=== PATIENT | female | born 1990 | race Caucasian/White ===

== ENCOUNTER 2017-12-25 04:34 | Inpatient (IN) | payer OTHER ==
[2017-12-25] MEDS ORDERED: BUTORPHANOL 1 MG/ML INJ IV PRN (05:50)
[2017-12-25] MEDS ORDERED: METHYLERGONOVINE 0.2MG/ML AMP IM PRN (05:50)
[2017-12-25] MEDS ORDERED: PROMETHAZINE 25 MG/ML VIAL IV PRN (05:50)
[2017-12-25] MEDS ORDERED: Ringers Lactate 1,000 ML IV PRN (05:50)
[2017-12-25] MEDS ORDERED: CARBOPROST TROME 250 MCG/ML IM PRN ×2 (05:50→18:41)
[2017-12-25] MEDS ORDERED: Ringers Lactate 1,000 ML IV SCH (06:00)
[2017-12-25] MEDS ORDERED: OXYTOCIN/LR 20 UNIT/1,000 ML BAG IV SCH ×2 (06:00→19:00)
[2017-12-25 06:46] LABS: RPR Titer ND
[2017-12-25 06:50] LABS: Absolute Lymphocytes (CBC) 2.1 K/uL (0.7-4.9); Absolute Monocytes 0.6 K/uL (0.1-1.3); Absolute Neutrophil 5.4 K/uL (1.8-8.0); Basophils % 0.7 % (0-1.3); Eosinophils % 1.8 % (0-4.4); Hematocrit 38.5 % (36.0-45.0); MCH 29.4 pg (27.0-35.0); MCV 84.3 fL (80-100); MPV 9.9 fL (7.6-11.3); Monocytes % 6.7 % (3.3-12.3); RBC Red Blood Cell Count 4.57 M/uL (3.86-4.86)
[2017-12-25 07:39] VITALS: BMI 34.7
[2017-12-25] MEDS ORDERED: FENTANYL CITR 100 MCG/2 ML IV ONE (10:49)
[2017-12-25] MEDS ORDERED: ROPIVACAINE HCL 100 ML IV PRN (10:49)
[2017-12-25] MEDS ORDERED: ROPIVACAINE HCL 0 ML ONE (11:53)
[2017-12-25] MEDS ORDERED: LIDOCAINE 2% INJ, 20 mL 20 ML ONE (17:10)
[2017-12-25] MEDS ORDERED: METHYLERGONOVINE 0.2MG/ML AMP IM ONE (17:10)
[2017-12-25] MEDS ORDERED: CARBOPROST TROME 250 MCG/ML IM ONE ×2 (18:38)
[2017-12-25] MEDS ORDERED: ONDANSETRON 4 MG (ODT) TAB PO PRN (18:41)
[2017-12-25] MEDS ORDERED: Oxycodone HCl/Acetaminophen 1 TAB TAB PO PRN (18:41)
[2017-12-25] MEDS ORDERED: IBUPROFEN 200 MG TAB PO PRN (18:41)
--- NOTE | 2017-12-25 18:45 | P.BOP ---
Preoperative diagnosis: 39+ wk Postoperative diagnosis: same, delivered Primary procedure: Viable female , right mid line episiotomy and repair. Estimated blood loss: 400ml Anesthesia: epidural Complications: Other (Mild atony) Transferred to: Other (275) Condition: Good
[2017-12-25 20:51] LABS: RPR (Rapid Plasma Reagin) NON-REACT (NON-REACT)
[2017-12-26] MEDS: Oxycodone HCl/Acetaminophen 1 TAB TAB PO PRN ×3 (03:40→23:35)
[2017-12-26 04:40] LABS: Absolute Lymphocytes (CBC) 2.2 K/uL (0.7-4.9); Absolute Monocytes 1.2 K/uL (0.1-1.3); Absolute Neutrophil 9.7 K/uL (1.8-8.0); Basophils % 0.3 % (0-1.3); Eosinophils % 0.3 % (0-4.4); Hematocrit 31.1 % (36.0-45.0); MCH 29.9 pg (27.0-35.0); MCV 85.6 fL (80-100); MPV 9.8 fL (7.6-11.3); Monocytes % 8.8 % (3.3-12.3); RBC Red Blood Cell Count 3.63 M/uL (3.86-4.86)
--- NOTE | 2017-12-26 17:03 | OP ---
Surgeon: Christian Gutierrez MD Ms. Lin is a 27-year-old, , female, 1, para 0, at 39+ weeks gestation. Sh bennie had been scheduled for induction, but came in with spontaneous rupture of membranes and prodromal l abor. After augmentation with Pitocin, she had a first stage of labor of 11 hour and 38 minutes, sec ond stage of labor of 2 hours and 19 minutes. She delivered by spontaneous controlled vaginal delive ry over a right midline episiotomy, an 8 pounds female , 9 and 9. The was deliver ed vertex OA. The cord was clamped, cut, and the infant placed in a warmer. Cord blood was obtained . Placenta was spontaneously expelled and appeared to be intact. Intrauterine examination revealed no retained placental fragments. The cord was delayed clamped for about 1 minute after delivery befo re placing the infant on mother's abdomen. The placenta was spontaneously expelled. Intrauterine ex amination revealed no retained placental fragments. Right midline episiotomy was repaired in the usu al fashion with 3-0 Vicryl suture because of mild atony and mildly elevated blood pressure. She was given 1 dose of Hemabate and vigorous fundal massage. Estimated total blood loss was less than 400 c c. The patient had 1 mg Stadol, 12.5 mg of Phenergan IV x1 prior to placement of epidural catheter e tyrone in her labor course and received excellent benefit from this. SHARON/ALLO Voice ID: [id number] Report ID: [id number]
[2017-12-27 08:24] VITALS: BP 141/79; TEMP 97.9
[2017-12-27 20:01] LABS: HBsAG Nonreactive (Nonreactive)
--- NOTE | 2017-12-28 05:10 | DS ---
Date of Discharge: 12/27/2017 Final Hospital Discharge Diagnoses: Term , delivered. Complications: None. Procedures: Pitocin augmentation of labor, placement of epidural catheter, spontaneous controlled va ginal delivery of viable female , right midline episiotomy with repair. Hospital Course: The patient is a 27-year-old female, 1, para 0, at 39+ wee ks' gestation, admitted with spontaneous rupture of membranes on the day she was scheduled for induct ion. She had an uneventful labor and delivery of an 8 pound female , 9 and 9. She was d ismissed on the second day, ambulatory, on a select diet, with routine post vaginal delive ry activity restrictions, to be seen back in my office in approximately 5 days for a blood pressure c heck. Blood pressure was borderline, but was not worsening. She had no proteinuria and platelet cou nt was normal. She was dismissed with prescription for Tylenol Number 3, #15, for pain relief, to co ntinue taking her iron and vitamins. Lab work included an admission hemoglobin and hematocr it of 13.4 and 38.5; dismissal 10.9 and 31.1, probably secondary to mild atony after delivery, treate d with Hemabate. She is Rh B positive blood type and rubella immune. She was dismissed with the u al post vaginal delivery activity restrictions. SHARON/LALO Voice ID: [id number] Report ID: [id number]
== END 2017-12-27 10:20 | disposition home or self-care (01) | DRG 775 ==
LOC: 2ND-WC 05:48
PROVIDERS: ADMIT Specialist; ATTEND Specialist
PROC: 10E0XZZ Delivery of Products of Conception, External Approach (ICD-10-PCS; principal; 2017-12-25)
PROC: 0W8NXZZ Division of Female Perineum, External Approach (ICD-10-PCS; 2017-12-25)
DX: O75.89 Other specified complications of labor and delivery (principal); Z37.0 Single live birth; Z3A.39 39 weeks gestation of pregnancy; R03.0 Elevated blood-pressure reading, without diagnosis of hypertension
CPT/HCPCS: 36415; 85025; 86592; 86850; 86900; 86901; 87340; J0595; J2210; J2550; J2590; J2795; J3010